=== PATIENT | male | born 1960 | race Caucasian/White ===

== ENCOUNTER → 2017-09-29 | Outpatient (CLI) | payer OTHER ==
[~2017-09-29] MED LIST: CATAFLAM50 MG PO; DECADRON P4 MG/ML-1M IH; DICLOFENAC SODI50 MG PO; FLEXERIL 10 MG PO; FLEXERIL10 MG PO; FLONASE16 GM NASAL; KETO10TA2 PO; LIPITOR 10 MG PO; LIPITOR40 MG; NEURONTIN300 MG PO; TORADOL60 MG IM; VOLTAREM 50 MG PO; VOLTAREM 75 MG PO; ZITHROMAX TRI-500 MG PO; ZITHROMAX500 MG PO; ZOCOR20 MG PO; ZYRTEC10 MG PO
== END | disposition home or self-care (01) ==
LOC: PPHC 16:17
DX: J00 Acute nasopharyngitis [common cold] (principal); J32.8 Other chronic sinusitis

== ENCOUNTER → 2017-10-06 | Outpatient (CLI) | payer OTHER ==
[~2017-10-06] VITALS: Ht 182.9 cm; Wt 81.6 kg
== END | disposition home or self-care (01) ==
LOC: PPHC 16:50
DX: M54.2 Cervicalgia (principal); Z01.89 Encounter for other specified special examinations

== ENCOUNTER → 2017-10-11 | Outpatient (CLI) | payer OTHER | END | disposition home or self-care (01) | LOC: RAD 10:19 | DX: M54.2 Cervicalgia (principal) ==

== ENCOUNTER → 2017-10-13 | Outpatient (CLI) | payer OTHER ==
[~2017-10-13] VITALS: Ht 182.9 cm; Wt 80.7 kg
== END | disposition home or self-care (01) ==
LOC: PPHC 14:57
DX: Z01.89 Encounter for other specified special examinations (principal); M54.2 Cervicalgia; Z00.8 Encounter for other general examination

== ENCOUNTER 2017-11-26 07:52 | Emergency (ER) | payer OTHER ==
[~2017-11-26] VITALS: Ht 182.9 cm; Wt 81.6 kg
== END 2017-11-26 09:42 | disposition home or self-care (01) ==
LOC: ER 07:52
DX: M54.5 Low back pain (principal)

== ENCOUNTER 2018-08-02 13:26 | Outpatient (CLI) | payer OTHER | END 2018-08-02 13:33 | disposition home or self-care (01) | LOC: RAD 13:26 | DX: I10 Essential (primary) hypertension (principal) ==

== ENCOUNTER → 2019-04-18 | Outpatient (CLI) | payer OTHER | END | disposition home or self-care (01) | LOC: RAD 11:16 | DX: M54.89 Other dorsalgia (principal) ==

== ENCOUNTER 2019-05-28 14:52 | Emergency (ER) | payer OTHER ==
[~2019-05-28] VITALS: Ht 180.3 cm; Wt 83.9 kg
[2019-05-28] MEDS ORDERED: LIPITOR40 MG PO (15:04)
== END 2019-05-28 20:06 | disposition home or self-care (01) ==
LOC: ER 14:52
DX: K57.90 Diverticulosis of intestine, part unspecified, without perforation or abscess without bleeding (principal); K59.09 Other constipation; R10.31 Right lower quadrant pain; N29 Other disorders of kidney and ureter in diseases classified elsewhere

== ENCOUNTER → 2019-06-28 | Outpatient (CLI) | payer OTHER ==
[~2019-06-28] MED LIST changes: +LIPITOR40 MG PO
== END | disposition home or self-care (01) ==
LOC: RAD 11:12
DX: M54.89 Other dorsalgia (principal)

== ENCOUNTER 2019-11-16 12:16 | Emergency (ER) | payer OTHER ==
[~2019-11-16] VITALS: Ht 180.3 cm; Wt 81.6 kg
== END 2019-11-16 12:47 | disposition home or self-care (01) ==
LOC: ER 12:16
DX: M54.5 Low back pain (principal)

== ENCOUNTER 2020-03-24 09:06 | Outpatient (CLI) | payer OTHER | END 2020-03-24 09:08 | disposition home or self-care (01) | LOC: RAD 09:06 | PROVIDERS: ATTEND Emergency Medicine | DX: J01.40 Acute pansinusitis, unspecified (principal) ==

== ENCOUNTER 2020-05-19 08:00 | Outpatient (CLI) | payer OTHER | END 2020-05-19 15:00 | disposition home or self-care (01) | LOC: PPH VACUNA 08:00 | DX: Z23 Encounter for immunization (principal) ==

== ENCOUNTER 2020-07-01 10:01 | Outpatient (CLI) | payer OTHER | END 2020-07-01 15:00 | disposition home or self-care (01) | LOC: LAB 10:01 | DX: Z20.828 Contact with and (suspected) exposure to other viral communicable diseases (principal) ==

== ENCOUNTER 2020-08-18 11:21 | Outpatient (CLI) | payer OTHER | END 2020-08-18 15:00 | disposition home or self-care (01) | LOC: PPH VACUNA 11:21 | DX: Z23 Encounter for immunization (principal) ==

== ENCOUNTER 2020-09-10 10:26 | Outpatient (CLI) | payer OTHER | END 2020-09-10 16:19 | disposition home or self-care (01) | LOC: LAB 10:26 | DX: U07.1 COVID-19 (principal) ==

== ENCOUNTER → 2020-09-25 | Outpatient (CLI) | payer OTHER | END | disposition home or self-care (01) | LOC: OFIC 805 15:15 | PROVIDERS: ATTEND Otolaryngology Otology & Neurotology | DX: J34.89 Other specified disorders of nose and nasal sinuses (principal); R09.81 Nasal congestion; J34.3 Hypertrophy of nasal turbinates; J31.0 Chronic rhinitis ==

== ENCOUNTER 2021-05-25 10:17 | Outpatient (CLI) | payer OTHER | END 2021-05-25 10:27 | disposition home or self-care (01) | LOC: RAD 10:17 | PROVIDERS: ATTEND Orthopaedic Surgery | DX: M25.561 Pain in right knee (principal) ==

== ENCOUNTER 2021-05-27 14:54 | Outpatient (CLI) | payer OTHER | END 2021-05-27 14:57 | disposition home or self-care (01) | LOC: MRI 14:54 → EDBD 14:54 → MRI 14:57 | PROVIDERS: ATTEND Orthopaedic Surgery | DX: M25.561 Pain in right knee (principal); M23.91 Unspecified internal derangement of right knee | CPT/HCPCS: 73721 ==

== ENCOUNTER 2021-05-31 08:00 | Outpatient (CLI) | payer OTHER | END 2021-05-31 08:30 | disposition home or self-care (01) | LOC: PPH VACUNA 08:00 | PROVIDERS: ATTEND Emergency Medicine Pediatric Emergency Medicine | DX: Z23 Encounter for immunization (principal) ==

== ENCOUNTER 2021-06-21 05:55 | Day surgery (SDC) | payer OTHER ==
[2021-06-21] MEDS ORDERED: TRAMADOL HCL50 MG PO (08:29)
[2021-06-21] MEDS ORDERED: DUI500 PO (08:29)
== END 2021-06-21 14:50 | disposition home or self-care (01) ==
LOC: CIR.AMB 05:55 → EDBD 10:15 → CIR.AMB 10:15
PROVIDERS: ATTEND Orthopaedic Surgery Sports Medicine
DX: M23.321 Other meniscus derangements, posterior horn of medial meniscus, right knee (principal); M65.861 Other synovitis and tenosynovitis, right lower leg; Z20.822 Contact with and (suspected) exposure to COVID-19

== ENCOUNTER → 2021-10-27 09:11 | Outpatient (CLI) | payer OTHER ==
[~2021-10-27 09:11] MED LIST changes: +DUI500 PO; +TRAMADOL HCL50 MG PO
== END | disposition home or self-care (01) ==
LOC: LAB 09:11
PROVIDERS: ATTEND General Practice
DX: E78.5 Hyperlipidemia, unspecified (principal); E55.9 Vitamin D deficiency, unspecified; N39.0 Urinary tract infection, site not specified; R42 Dizziness and giddiness; Z12.5 Encounter for screening for malignant neoplasm of prostate; R10.2 Pelvic and perineal pain

== ENCOUNTER 2022-02-28 09:38 | Outpatient (CLI) | payer OTHER | END 2022-02-28 09:39 | disposition home or self-care (01) | LOC: LAB 09:38 | PROVIDERS: ATTEND General Practice | DX: Z00.00 Encounter for general adult medical examination without abnormal findings (principal); E78.5 Hyperlipidemia, unspecified; E55.9 Vitamin D deficiency, unspecified; E11.9 Type 2 diabetes mellitus without complications; N39.0 Urinary tract infection, site not specified ==

== ENCOUNTER 2022-04-11 08:04 | Outpatient (CLI) | payer OTHER | END 2022-04-11 08:18 | disposition home or self-care (01) | LOC: SONOGRAMA 08:04 | PROVIDERS: ATTEND Internal Medicine Gastroenterology | DX: R10.9 Unspecified abdominal pain (principal) ==

== ENCOUNTER 2022-05-04 09:26 | Outpatient (CLI) | payer OTHER | END 2022-05-04 09:30 | disposition home or self-care (01) | LOC: PPH VACUNA 09:26 | PROVIDERS: ATTEND Emergency Medicine Pediatric Emergency Medicine | DX: Z23 Encounter for immunization (principal) ==

== ENCOUNTER 2022-06-08 09:46 | Outpatient (CLI) | payer OTHER | END 2022-06-08 09:47 | disposition home or self-care (01) | LOC: NUCLEAR 09:46 | PROVIDERS: ATTEND Internal Medicine Gastroenterology | DX: K80.01 Calculus of gallbladder with acute cholecystitis with obstruction (principal) | CPT/HCPCS: 78227; A9537; J2805 ==

== ENCOUNTER 2022-06-22 10:42 | Outpatient (CLI) | payer OTHER | END 2022-06-22 13:34 | disposition home or self-care (01) | LOC: LAB 10:42 | PROVIDERS: ATTEND General Practice | DX: Z20.828 Contact with and (suspected) exposure to other viral communicable diseases (principal) ==

== ENCOUNTER 2022-12-22 08:21 | Outpatient (CLI) | payer OTHER | END 2022-12-22 08:23 | disposition home or self-care (01) | LOC: LAB 08:21 | PROVIDERS: ATTEND General Practice | DX: E78.5 Hyperlipidemia, unspecified (principal); E55.9 Vitamin D deficiency, unspecified; R42 Dizziness and giddiness; Z00.00 Encounter for general adult medical examination without abnormal findings ==

== ENCOUNTER → 2023-01-06 07:09 | Outpatient (CLI) | payer OTHER | END | disposition home or self-care (01) | LOC: SONOGRAMA 07:09 | DX: R10.11 Right upper quadrant pain (principal) ==

== ENCOUNTER → 2023-05-04 | Outpatient (CLI) | payer OTHER | END | disposition home or self-care (01) | LOC: PPH VACUNA | PROVIDERS: ATTEND Emergency Medicine Pediatric Emergency Medicine | DX: Z23 Encounter for immunization (principal) | CPT/HCPCS: 90636; G0008 ==

== ENCOUNTER 2023-05-11 07:50 | Outpatient (CLI) | payer OTHER | END 2023-05-11 07:53 | disposition home or self-care (01) | LOC: SONOGRAMA 07:50 | PROVIDERS: ATTEND Internal Medicine Gastroenterology | DX: R10.84 Generalized abdominal pain (principal) ==

== ENCOUNTER 2023-05-11 09:35 | Outpatient (CLI) | payer OTHER | END 2023-05-11 09:49 | disposition home or self-care (01) | LOC: LAB 09:35 | PROVIDERS: ATTEND Internal Medicine Gastroenterology | DX: R10.13 Epigastric pain (principal); Z12.11 Encounter for screening for malignant neoplasm of colon ==

== ENCOUNTER 2023-06-15 10:30 | Outpatient (CLI) | payer OTHER ==
[2023-06-15 11:45] LABS: CREATININE SERUM 1.22 mg/dL (0.70-1.30)
== END 2023-06-15 12:57 | disposition home or self-care (01) ==
LOC: LAB 10:30
PROVIDERS: ATTEND Radiology Diagnostic Radiology
DX: R10.30 Lower abdominal pain, unspecified (principal)

== ENCOUNTER 2023-06-16 08:11 | Outpatient (CLI) | payer OTHER | END 2023-06-16 08:15 | disposition home or self-care (01) | LOC: TOM 08:11 | PROVIDERS: ATTEND Internal Medicine Gastroenterology | DX: R10.11 Right upper quadrant pain (principal) ==

== ENCOUNTER 2023-07-03 13:01 | Outpatient (CLI) | payer OTHER | END 2023-07-03 15:01 | disposition home or self-care (01) | LOC: RAD 13:01 | PROVIDERS: ATTEND Emergency Medicine | DX: R53.83 Other fatigue (principal) ==

== ENCOUNTER 2023-07-25 09:16 | Outpatient (CLI) | payer OTHER ==
[2023-07-25 10:02] LABS: HEMATOCRIT 40.7 % (39.0-48.0); HEMOGLOBIN 13.3 g/dL (13-16.00); MEAN CELL VOLUME 76.5 fL (80.0-100.00); MEAN CORPUSCULAR HGB CONC 32.7 g/dl (32.0-36.0); PLATELET COUNT 199 K/uL (150-450); RED BLOOD COUNT 5.31 M/uL (4.00-6.00); RED CELL DISTRIBUTION WIDTH 18.4 % (11.5-14.5)
[2023-07-25 10:26] LABS: ALBUMIN 3.6 gm/dL (3.4-5.0); BILIRUBIN TOTAL 0.57 mg/dL (0.3-1.2); CALCIUM 8.7 mg/dL (8.5-10.1); CREATININE SERUM 1.19 mg/dL (0.70-1.30); GFR 61.74; GLOBULINA 3.2 G/DL (2.4-3.5); POTASSIUM 4.34 mEq/L (3.5-5.1); TOTAL PROTEIN 6.8 gm/dL (6.4-8.2); TSH 1.2 uIU/mL (0.358-3.74)
[2023-07-25 10:44] LABS: FERRITIN 18.1 NG/ML (26-388)
[2023-07-25 15:01] LABS: PLATELET ESTIMATE NORMAL (NORMAL)
== END 2023-07-25 12:38 | disposition home or self-care (01) ==
LOC: LAB 09:16
PROVIDERS: ATTEND Internal Medicine Hematology & Oncology
DX: D50.8 Other iron deficiency anemias (principal); R79.9 Abnormal finding of blood chemistry, unspecified; I10 Essential (primary) hypertension; R74.02 Elevation of levels of lactic acid dehydrogenase [LDH]; K76.89 Other specified diseases of liver; D63.8 Anemia in other chronic diseases classified elsewhere; D51.0 Vitamin B12 deficiency anemia due to intrinsic factor deficiency; E03.8 Other specified hypothyroidism; E06.3 Autoimmune thyroiditis; D51.1 Vitamin B12 deficiency anemia due to selective vitamin B12 malabsorption with proteinuria; D51.3 Other dietary vitamin B12 deficiency anemia; E78.2 Mixed hyperlipidemia; I63.9 Cerebral infarction, unspecified

== ENCOUNTER 2023-10-12 10:10 | Emergency (ER) | payer OTHER ==
[~2023-10-12] VITALS: Ht 182.9 cm; Wt 83.9 kg
[2023-10-12] MEDS ORDERED: LIPITOR40 M1 PO (10:14)
[2023-10-12] MEDS ORDERED: ACETAMINOPHEN 500 MG GEL..CAP PO STA (10:21)
[2023-10-12] MEDS ORDERED: KETOROLAC TROMETHAMINE 30 MG VIAL IV STA (10:21)
[2023-10-12] MEDS ORDERED: METHYLPREDNISOLONE SOD SUCC 40 MG VIAL IV STA (10:22)
[2023-10-12] MEDS ORDERED: ORPHENADRINE CITRATE 30 MG/ML AMPUL IM STA (10:22)
[2023-10-12] MEDS ORDERED: DIAZEPAM 5 MG TABLET PO STA (10:23)
[2023-10-12] MEDS ORDERED: MEDROLPACK PO (13:35)
[2023-10-12] MEDS ORDERED: METAXALONE800 MG PO (13:35)
[2023-10-12] MEDS ORDERED: ADVIL DUAL ACT1 EACH PO (13:35)
== END 2023-10-12 14:41 | disposition home or self-care (01) ==
LOC: ER 10:10
DX: S39.012A Strain of muscle, fascia and tendon of lower back, initial encounter (principal); X58.XXXA Exposure to other specified factors, initial encounter; Y93.89 Activity, other specified; Y92.89 Other specified places as the place of occurrence of the external cause; Y99.8 Other external cause status

== ENCOUNTER 2023-11-24 06:14 | Outpatient (CLI) | payer OTHER ==
[~2023-11-24 06:14] MED LIST changes: +ADVIL DUAL ACT1 EACH PO; +LIPITOR40 M1 PO; +MEDROLPACK PO; +METAXALONE800 MG PO
[2023-11-24 06:26] LABS: HEMATOCRIT 46.7 % (39.0-48.0); MEAN CELL VOLUME 86.4 fL (80.0-100.00); MEAN CORPUSCULAR HEMOGLOBIN 29.5 pg (27.00-32.0); MEAN CORPUSCULAR HGB CONC 34.2 g/dl (32.0-36.0); PLATELET COUNT 180 K/uL (150-450); RED CELL DISTRIBUTION WIDTH 15.4 % (11.5-14.5)
[2023-11-24 07:37] LABS: % SATURACION 38.9 % (20-50); ALBUMIN 3.7 gm/dL (3.4-5.0); BILIRUBIN TOTAL 0.83 mg/dL (0.3-1.2); CREATININE SERUM 1.58 mg/dL (0.70-1.30); FERRITIN 40.1 NG/ML (26-388); GFR 44.52; GLOBULINA 3.3 G/DL (2.4-3.5); POTASSIUM 4.42 mEq/L (3.5-5.1)
[2023-11-24 08:45] LABS: FOLIC ACID > 20.00 ng/ml (4.78-20)
[2023-11-24 09:38] LABS: MANUAL PLATELET COUNT 256
[2023-11-24 09:45] LABS: PLATELET ESTIMATE NORMAL (NORMAL)
== END 2023-11-24 06:18 | disposition home or self-care (01) ==
LOC: LAB 06:14
PROVIDERS: ATTEND Internal Medicine Hematology & Oncology
DX: D51.1 Vitamin B12 deficiency anemia due to selective vitamin B12 malabsorption with proteinuria (principal); D51.3 Other dietary vitamin B12 deficiency anemia; E78.2 Mixed hyperlipidemia; I63.9 Cerebral infarction, unspecified; D50.8 Other iron deficiency anemias; R79.9 Abnormal finding of blood chemistry, unspecified; I10 Essential (primary) hypertension; R74.02 Elevation of levels of lactic acid dehydrogenase [LDH]; K76.89 Other specified diseases of liver; D68.59 Other primary thrombophilia; D68.61 Antiphospholipid syndrome; E72.11 Homocystinuria

== ENCOUNTER 2024-04-01 11:24 | Outpatient (CLI) | payer OTHER ==
[~2024-04-01 11:24] MED LIST changes: +LIPITOR20 MG; +LIPITOR20 MG PO
== END 2024-04-01 11:28 | disposition home or self-care (01) ==
LOC: LAB 11:24
PROVIDERS: ATTEND Preventive Medicine Occupational Medicine
DX: B19.10 Unspecified viral hepatitis B without hepatic coma (principal)

== ENCOUNTER 2024-04-18 07:08 | Outpatient (CLI) | payer OTHER ==
[2024-04-18 08:16] LABS: HEMATOCRIT 45.9 % (39.0-48.0); HEMOGLOBIN 15.6 g/dL (13-16.00); MEAN CELL VOLUME 85.8 fL (80.0-100.00); MEAN CORPUSCULAR HEMOGLOBIN 29.2 pg (27.00-32.0); PLATELET COUNT 163 K/uL (150-450); RED BLOOD COUNT 5.35 M/uL (4.00-6.00); RED CELL DISTRIBUTION WIDTH 14.3 % (11.5-14.5)
[2024-04-18 08:37] LABS: ALBUMIN 3.7 gm/dL (3.4-5.0); BILIRUBIN TOTAL 0.98 mg/dL (0.3-1.2); CHOL HDL RATIO 3.6 (0-5.0); CREATININE SERUM 0.88 mg/dL (0.70-1.30); FERRITIN 49.2 NG/ML (26-388); GFR 87.18; GLOBULINA 3.2 G/DL (2.4-3.5); POTASSIUM 4.02 mEq/L (3.5-5.1); PROSTATIC SPECIFIC ANTIGEN 0.788 NG/ML (0.010-4.00); T4 FREE 0.82 NG/ML (0.76-1.46); TOTAL PROTEIN 6.9 gm/dL (6.4-8.2); TSH 1.29 uIU/mL (0.358-3.74)
[2024-04-18 08:54] LABS: FOLIC ACID > 20.00 ng/ml (4.78-20); VITAMIN D3 25 HYDROXY 66.26 ng/ml (30-120)
[2024-04-18 11:58] LABS: MANUAL PLATELET COUNT 196
[2024-04-18 12:00] LABS: PLATELET ESTIMATE NORMAL (NORMAL)
== END 2024-04-18 14:53 | disposition home or self-care (01) ==
LOC: LAB 07:08
PROVIDERS: ATTEND Internal Medicine Hematology & Oncology
DX: D51.1 Vitamin B12 deficiency anemia due to selective vitamin B12 malabsorption with proteinuria (principal); D51.3 Other dietary vitamin B12 deficiency anemia; D68.61 Antiphospholipid syndrome; E72.11 Homocystinuria; E72.12 Methylenetetrahydrofolate reductase deficiency; I63.9 Cerebral infarction, unspecified; E78.2 Mixed hyperlipidemia; D50.8 Other iron deficiency anemias; R79.9 Abnormal finding of blood chemistry, unspecified; K76.89 Other specified diseases of liver; R74.02 Elevation of levels of lactic acid dehydrogenase [LDH]; I10 Essential (primary) hypertension; E55.9 Vitamin D deficiency, unspecified; E03.8 Other specified hypothyroidism; R97.0 Elevated carcinoembryonic antigen [CEA]

== ENCOUNTER 2024-04-20 08:18 | Outpatient (CLI) | payer OTHER ==
[2024-04-20 09:04] LABS: ob NEGATIVE (NEGATIVE)
[2024-04-20 09:31] LABS: PH,URINE 5.5 (5.0-8.0); URINE APPEARANCE Clear; URINE BILIRRUBIN Negative (NEGATIVE); URINE BLOOD Negative; URINE COLOR Yellow; URINE GLUCOSE Negative (NEGATIVE); URINE KETONE Negative (NEGATIVE); URINE LEUKOCYTE Negative; URINE NITRATE Negative; URINE PROTEIN Negative (NEGATIVE); URINE UROBILINOGEN 0.2 E.U./dl
[2024-04-20 10:16] LABS: URINE BACTERIA 3.7 uL (0.0-1933); URINE CAST 0.15 uL (0.0-1.40); URINE EPITHELIAL CELLS 0.7 uL (0.0-38.8); URINE RBC 1.5 uL (0.0-20.8); URINE WBC 1.5 uL (0.0-23.2)
== END 2024-04-20 08:19 | disposition home or self-care (01) ==
LOC: LAB 08:18
PROVIDERS: ATTEND Internal Medicine Geriatric Medicine
DX: D50.9 Iron deficiency anemia, unspecified (principal); E03.9 Hypothyroidism, unspecified; E78.2 Mixed hyperlipidemia; I11.9 Hypertensive heart disease without heart failure; E56.8 Deficiency of other vitamins; N39.0 Urinary tract infection, site not specified; Z12.11 Encounter for screening for malignant neoplasm of colon; R19.5 Other fecal abnormalities; E55.9 Vitamin D deficiency, unspecified; N19 Unspecified kidney failure; E11.9 Type 2 diabetes mellitus without complications; R80.9 Proteinuria, unspecified; C18.8 Malignant neoplasm of overlapping sites of colon; K92.1 Melena; Z12.5 Encounter for screening for malignant neoplasm of prostate

== ENCOUNTER 2024-07-23 09:01 | Outpatient (CLI) | payer OTHER ==
[2024-07-23 09:17] LABS: HEMATOCRIT 48.5 % (39.0-48.0); HEMOGLOBIN 16.1 g/dL (13-16.00); MEAN CELL VOLUME 89.1 fL (80.0-100.00); MEAN CORPUSCULAR HEMOGLOBIN 29.6 pg (27.00-32.0); MEAN CORPUSCULAR HGB CONC 33.2 g/dl (32.0-36.0); PLATELET COUNT 167 K/uL (150-450); RED BLOOD COUNT 5.45 M/uL (4.00-6.00)
[2024-07-23 09:26] LABS: ALBUMIN 3.7 gm/dL (3.4-5.0); BILIRUBIN TOTAL 0.81 mg/dL (0.3-1.2); CALCIUM 9.1 mg/dL (8.5-10.1); CHOL HDL RATIO 3.3 (0-5.0); CREATININE SERUM 1.29 mg/dL (0.70-1.30); GFR 56.07; GLOBULINA 3.5 G/DL (2.4-3.5); POTASSIUM 4.42 mEq/L (3.5-5.1); TOTAL PROTEIN 7.2 gm/dL (6.4-8.2)
== END 2024-07-23 09:04 | disposition home or self-care (01) ==
LOC: LAB 09:01
PROVIDERS: ATTEND Internal Medicine Cardiovascular Disease
DX: D64.9 Anemia, unspecified (principal); E10.9 Type 1 diabetes mellitus without complications; E78.5 Hyperlipidemia, unspecified; E11.9 Type 2 diabetes mellitus without complications; R73.09 Other abnormal glucose

== ENCOUNTER 2024-11-21 06:34 | Outpatient (CLI) | payer OTHER ==
[2024-11-21 07:59] LABS: HEMATOCRIT 45.7 % (39.0-48.0); HEMOGLOBIN 15.6 g/dL (13-16.00); MEAN CELL VOLUME 86.9 fL (80.0-100.00); MEAN CORPUSCULAR HEMOGLOBIN 29.7 pg (27.00-32.0); MEAN CORPUSCULAR HGB CONC 34.2 g/dl (32.0-36.0); PLATELET COUNT 164 K/uL (150-450); RED BLOOD COUNT 5.26 M/uL (4.00-6.00); RED CELL DISTRIBUTION WIDTH 14.3 % (11.5-14.5)
[2024-11-21 08:35] LABS: % SATURACION 38.4 % (20-50); ALBUMIN 3.7 gm/dL (3.4-5.0); BILIRUBIN TOTAL 0.78 mg/dL (0.3-1.2); CHOL HDL RATIO 3.5 (0-5.0); CREATININE SERUM 1.22 mg/dL (0.70-1.30); FERRITIN 74.7 NG/ML (26-388); GFR 59.8; GLOBULINA 2.8 G/DL (2.4-3.5); POTASSIUM 4.41 mEq/L (3.5-5.1); PROSTATIC SPECIFIC ANTIGEN 0.839 NG/ML (0.010-4.00); T4 FREE 0.95 NG/ML (0.76-1.46); TOTAL PROTEIN 6.5 gm/dL (6.4-8.2); TSH 1.34 uIU/mL (0.358-3.74)
[2024-11-21 09:29] LABS: FOLIC ACID > 20.00 ng/ml (4.78-20); VITAMIN D3 25 HYDROXY 71.42 ng/ml (30-120)
[2024-11-21 10:40] LABS: MANUAL PLATELET COUNT 232; PLATELET ESTIMATE NORMAL (NORMAL)
== END 2024-11-21 06:38 | disposition home or self-care (01) ==
LOC: LAB 06:34
PROVIDERS: ATTEND Internal Medicine Hematology & Oncology
DX: D50.8 Other iron deficiency anemias (principal); R79.9 Abnormal finding of blood chemistry, unspecified; I10 Essential (primary) hypertension; R74.02 Elevation of levels of lactic acid dehydrogenase [LDH]; K76.89 Other specified diseases of liver; E55.9 Vitamin D deficiency, unspecified; E78.2 Mixed hyperlipidemia; E03.8 Other specified hypothyroidism; D68.59 Other primary thrombophilia; R97.0 Elevated carcinoembryonic antigen [CEA]; D51.1 Vitamin B12 deficiency anemia due to selective vitamin B12 malabsorption with proteinuria; D51.3 Other dietary vitamin B12 deficiency anemia; D68.61 Antiphospholipid syndrome; E72.12 Methylenetetrahydrofolate reductase deficiency; E72.11 Homocystinuria; I63.9 Cerebral infarction, unspecified; E11.9 Type 2 diabetes mellitus without complications

== ENCOUNTER 2025-03-18 06:14 | Outpatient (CLI) | payer OTHER ==
[2025-03-18 06:53] LABS: BASO % 1.0 % (0.1-1.2); EOS # 0.16 (0.04-0.54); EOS % 3.1 % (0.7-7.0); LYMPH # 1.65 (1.18-3.74); LYMPH % 32.0 % (19.3-53.1); MEAN PLATELET VOLUME 10.50 fl (9.4-12.4); MONO # 0.48 (0.24-0.82); MONO % 9.3 % (4.7-12.5); NEUT # 2.80 (1.56-6.13); NEUT % 54.2 % (34.0-71.1); RED CELL DISTRIBUTION WIDTH 13.1 % (11.6-14.4)
[2025-03-18 06:56] LABS: ALT/SGPT 37 U/L (12-78); AST/SGOT 27 U/L (15-37); BILIRUBIN TOTAL 0.58 mg/dL (0.3-1.2); BUN CREA RATIO 13 (7.0-25.0); CHOL HDL RATIO 3.7 (0-5.0); CREATININE SERUM 1.24 mg/dL (0.70-1.30); GFR 58.69; GLOBULINA 3.4 G/DL (2.4-3.5); GLUCOSE FASTING 120 mg/dL (65-100); HDL 51 mg/dl (40-60); OSMOLALITY SERUM 284 MOSM/KG (275-295)
[2025-03-18 06:59] LABS: LDL 93 mg/dl (0-130); VLDL 47 (0-39)
[2025-03-18 07:19] LABS: ERYTHROCYTE SEDIMENTATION RATE 6 mm/hr (0-20)
[2025-03-18 07:46] LABS: URINE APPEARANCE Clear; URINE BILIRRUBIN Negative (NEGATIVE); URINE BLOOD Negative; URINE COLOR Yellow; URINE GLUCOSE Negative (NEGATIVE); URINE KETONE Trace (NEGATIVE); URINE LEUKOCYTE Negative; URINE NITRATE Negative; URINE PROTEIN Trace (NEGATIVE); URINE UROBILINOGEN 0.2 E.U./dl
[2025-03-18 07:50] LABS: URINE BACTERIA 15.5 uL (0.0-1933); URINE EPITHELIAL CELLS 1.8 uL (0.0-38.8); URINE RBC 3.9 uL (0.0-20.8); URINE WBC 3.0 uL (0.0-23.2)
[2025-03-18 08:01] LABS: URINE CAST 0.00 uL (0.0-1.40)
[2025-03-18 13:31] LABS: FOLIC ACID > 20.00 ng/ml (4.78-20)
[2025-03-19 09:11] LABS: HOMOCYSTEINE 8.0 umol/L (0.0-17.2)
== END 2025-03-18 06:33 | disposition home or self-care (01) ==
LOC: LAB 06:14
DX: I60.8 Other nontraumatic subarachnoid hemorrhage (principal); I60.9 Nontraumatic subarachnoid hemorrhage, unspecified

== ENCOUNTER 2025-05-16 08:34 | Outpatient (CLI) | payer OTHER ==
[2025-05-16 08:55] LABS: BASO % 0.6 % (0.1-1.2); EOS # 0.07 (0.04-0.54); EOS % 1.4 % (0.7-7.0); LYMPH # 1.08 (1.18-3.74); LYMPH % 21.9 % (19.3-53.1); MEAN PLATELET VOLUME 9.80 fl (9.4-12.4); MONO # 0.40 (0.24-0.82); MONO % 8.1 % (4.7-12.5); NEUT # 3.34 (1.56-6.13); NEUT % 67.8 % (34.0-71.1); RED CELL DISTRIBUTION WIDTH 13.3 % (11.6-14.4)
[2025-05-16 10:09] LABS: ALT/SGPT 42.0 U/L (12-78); AST/SGOT 37.0 U/L (15-37); BILIRUBIN TOTAL 0.82 mg/dL (0.3-1.2); BUN CREA RATIO 10.0 (7.0-25.0); CHOL HDL RATIO 3.9 (0-5.0); CREATININE SERUM 1.39 mg/dL (0.70-1.30); FE 164.0 ug/dl (65-175); GFR 51.28; GLOBULINA 3.1 G/DL (2.4-3.5); GLUCOSE FASTING 102.0 mg/dL (65-100); HDL 45.0 mg/dl (40-60); LDH 201.0 U/L (87-241); LDL 86.0 mg/dl (0-130); OSMOLALITY SERUM 284.0 MOSM/KG (275-295); PROSTATIC SPECIFIC ANTIGEN 0.841 NG/ML (0.010-4.00); T4 FREE 0.86 NG/ML (0.76-1.46); TSH 1.39 uIU/mL (0.358-3.74); VLDL 45.0 (0-39)
[2025-05-16 11:47] LABS: FOLIC ACID > 20.00 ng/ml (4.78-20); VITAMIN D3 25 HYDROXY 80.96 ng/ml (30-120)
== END 2025-05-16 13:51 | disposition home or self-care (01) ==
LOC: LAB 08:34
PROVIDERS: ATTEND Internal Medicine Hematology & Oncology
DX: D51.1 Vitamin B12 deficiency anemia due to selective vitamin B12 malabsorption with proteinuria (principal); D51.3 Other dietary vitamin B12 deficiency anemia; D68.61 Antiphospholipid syndrome; I63.9 Cerebral infarction, unspecified; E78.2 Mixed hyperlipidemia; D50.8 Other iron deficiency anemias; R79.9 Abnormal finding of blood chemistry, unspecified; I10 Essential (primary) hypertension; R74.02 Elevation of levels of lactic acid dehydrogenase [LDH]; K76.89 Other specified diseases of liver; E55.9 Vitamin D deficiency, unspecified; Z13.29 Encounter for screening for other suspected endocrine disorder; E03.8 Other specified hypothyroidism; R97.0 Elevated carcinoembryonic antigen [CEA]; E11.9 Type 2 diabetes mellitus without complications

== ENCOUNTER 2025-07-16 06:22 | Outpatient (CLI) | payer OTHER ==
[2025-07-16 06:27] LABS: BASO % 0.9 % (0.1-1.2); EOS # 0.24 (0.04-0.54); EOS % 5.3 % (0.7-7.0); LYMPH # 1.59 (1.18-3.74); LYMPH % 34.8 % (19.3-53.1); MEAN PLATELET VOLUME 10.30 fl (9.4-12.4); MONO # 0.39 (0.24-0.82); MONO % 8.5 % (4.7-12.5); NEUT # 2.31 (1.56-6.13); NEUT % 50.5 % (34.0-71.1); RED CELL DISTRIBUTION WIDTH 12.9 % (11.6-14.4)
[2025-07-16 06:42] LABS: ALT/SGPT 37.0 U/L (12-78); AST/SGOT 26.0 U/L (15-37); BILIRUBIN TOTAL 0.63 mg/dL (0.3-1.2); BUN CREA RATIO 16.0 (7.0-25.0); CHOL HDL RATIO 3.5 (0-5.0); CREATININE SERUM 1.06 mg/dL (0.70-1.30); GFR 70.11; GLOBULINA 2.8 G/DL (2.4-3.5); GLUCOSE FASTING 93.0 mg/dL (65-100); HDL 40.0 mg/dl (40-60); LDL 54.0 mg/dl (0-130); OSMOLALITY SERUM 284.0 MOSM/KG (275-295); PROSTATIC SPECIFIC ANTIGEN 0.726 NG/ML (0.010-4.00); VLDL 47.0 (0-39)
== END 2025-07-16 06:33 | disposition home or self-care (01) ==
LOC: LAB 06:22
PROVIDERS: ATTEND Internal Medicine Cardiovascular Disease
DX: D64.9 Anemia, unspecified (principal); R10.9 Unspecified abdominal pain; E78.5 Hyperlipidemia, unspecified; E11.9 Type 2 diabetes mellitus without complications; N40.0 Benign prostatic hyperplasia without lower urinary tract symptoms

== ENCOUNTER 2025-08-07 09:59 | Outpatient (CLI) | payer OTHER | END 2025-08-07 10:04 | disposition home or self-care (01) | LOC: NUCLEAR 09:59 | PROVIDERS: ATTEND Internal Medicine Hematology & Oncology | DX: M81.0 Age-related osteoporosis without current pathological fracture (principal) ==